=== PATIENT | female | born 1935 | race Caucasian/White ===

== ENCOUNTER 2016-06-09 20:46 | Emergency (ER) | payer MEDICARE ==
[~2016-06-09] VITALS: Ht 165.1 cm; Wt 53.5 kg
--- NOTE | 2016-06-09 20:46 | NUR ---
ACCU CK PER EMS 127
[2016-06-09 21:05] LABS: BASOPHILS % (AUTO) 0 % (0-2); EOSINOPHILS % (AUTO) 0 % (0-4); MEAN CORPUSCULAR HEMOGLOBIN 30.3 PG (26.0-34.0); MEAN CORPUSCULAR HGB CONC 33.3 g/dL (31.0-37.0); MEAN CORPUSCULAR VOLUME 91 FL (80-100); MEAN PLATELET VOLUME 10.2 FL (6.0-9.5); MONOCYTES # (AUTO) 0.4 X10^3; MONOCYTES % (AUTO) 8 % (3-11); NEUTROPHILS # (AUTO) 3.1 X10^3; NEUTROPHILS % (AUTO) 70 % (51-67); PLATELET COUNT 171 10^3uL (150-450); WHITE BLOOD COUNT 4.51 10^3uL (4.0-11.0)
[2016-06-09 21:14] LABS: ALBUMIN 4.2 g/dL (3.4-5.0); ALKALINE PHOSPHATASE 81 U/L (38-126); ANION GAP 15.8 MEQ/L (3-15); BUN/CREATININE RATIO 17 (10-20); CALCULATED IONIZED CALCIUM 3.9 mg/dL (3.8-4.6); CREATINE KINASE 57 U/L (30-135); TOTAL PROTEIN 7.4 g/dL (6.4-8.5)
--- NOTE | 2016-06-09 22:00 | NUR ---
REPORTED ORTHOSTATICS TO TO DR BAIRES TO GIVE PT BOLUS 500 ML NS
[2016-06-09] MEDS ORDERED: NS IV 500 ML 500 ML ONE (22:04)
[2016-06-09] MEDS ORDERED: NS IV 500 ML 500 ML IV SCH (22:05)
--- NOTE | 2016-06-09 22:50 | NUR ---
DR BAIRES CONSULTED WITH DR LOPEZ AT [facility] AND THEY ACCEPT PT TO BE TRANSFERED THERE
--- NOTE | 2016-06-09 23:06 | NUR ---
BRE FROM [facility] SAID THAT SHE WILL CALL WHEN READY TO HAVE PT TRANSFERED HAS TO HAVE ROOM CLEANED. BUT PT WILL GO TO ROOM [id number]
--- NOTE | 2016-06-09 23:33 | NUR ---
EMS HERE AND WANTING TO TAKE PATIENT TOLD THEM NEEDED TO WAIT UNTIL BRE AT [facility] CALLED BACK THEY WERE CLEANING UNIT. PER EMS REQUEST RN CALLED BRE AT [facility] AND SHE SAID THAT SHE WOULD PUT A STAT ORDER ON IT BUT TO HOLD OFF SENDING PT UNTIL SHE CALLS US BACK IN 5-10 MINUTES, RN DID LET BRE KNOW EMS REPORTS IT TAKES AND HOUR TO GET THERE. LET MINISTERIO AND SYD KNOW THIS INFORMATION.
--- NOTE | 2016-06-09 23:36 | NUR ---
PT WAS GOTTEN UP TO TOILET GAIT STEADY NO DIZZINESS OR SYNCOPE
[2016-06-09 23:54] VITALS: BP 143/63
== END 2016-06-10 | disposition short-term general hospital (02) ==
LOC: ED 20:51
DX: R55 Syncope and collapse (principal); I95.1 Orthostatic hypotension; R00.1 Bradycardia, unspecified; R15.9 Full incontinence of feces; I10 Essential (primary) hypertension
CPT/HCPCS: 36415; 70450; 71010; 80053; 82550; 82553; 84484; 85025; 85610; 85730; 93005; 96360; 99285; J7040; 93010

== ENCOUNTER → 2016-06-09 | Outpatient (CLI) | payer MEDICARE | LOC: EMS 20:30 | PROVIDERS: ATTEND Family Medicine | DX: R55 Syncope and collapse (principal); R53.1 Weakness ==

== ENCOUNTER → 2016-06-09 | Outpatient (CLI) | payer MEDICARE | LOC: EMS 23:21 | PROVIDERS: ATTEND Internal Medicine | DX: R55 Syncope and collapse (principal); R00.1 Bradycardia, unspecified ==